=== PATIENT | female | born 1970 | race American Indian/Alaskan Native ===

== ENCOUNTER 2021-07-19 00:38 | Emergency (ER) | payer SELFPAY ==
[2021-07-19 01:22] VITALS: BP 122/73
--- NOTE | 2021-07-19 03:17 | Emergency Department Report ---
ED General Adult HPI - General Chief complaint: Chest Pain Stated complaint: chest pain Time Seen by Provider: 07/19/21 02:56 Source: EMS Mode of arrival: Stretcher Limitations: No Limitations - History of Present Illness Initial comments: Patient is 50 years old female with recent diagnosis of DVT and pulmonary embolism. Patient stated that she stayed 8 days at [facility]. Patient stated that she was discharged on Eliquis. Patient stated that she is compliant with her medication. Patient presented to the ER complaining of chest pain and bilateral lower extremity pain. She denies any fever or chills. She also reported palpitation. Severity scale (0 -10): 2 - Related Data Previous Rx's Medication Instructions Recorded Last Taken Type Naproxen [Naprosyn] 500 mg PO BID #14 tablet 07/19/21 Unknown Rx Allergies Allergy/AdvReac Type Severity Reaction Status Date / Time No Known Allergies Allergy Unverified 07/19/21 01:22 ED Review of Systems ROS: Stated complaint: chest pain Other details as noted in HPI Comment: All other systems reviewed and negative Constitutional: denies: chills, fever Respiratory: denies: cough, shortness of breath, SOB with exertion Cardiovascular: chest pain, palpitations Gastrointestinal: denies: abdominal pain, nausea, vomiting Musculoskeletal: denies: back pain Neurological: denies: headache, weakness, numbness, paresthesias, confusion ED Past Medical Hx - Past Medical History Previous Medical History?: Yes Hx Deep Vein Thrombosis: Yes Additional medical history: PE - Surgical History Past Surgical History?: No - Medications Home Medications: Home Medications Medication Instructions Recorded Confirmed Last Taken Type Naproxen [Naprosyn] 500 mg PO BID #14 tablet 07/19/21 Unknown Rx ED Physical Exam - General Limitations: No Limitations General appearance: alert, in no apparent distress - Head Head exam: Present: atraumatic, normocephalic, normal inspection - Eye Eye exam: Present: normal appearance - ENT ENT exam: Present: normal exam, normal orophraynx, mucous membranes moist - Neck Neck exam: Present: normal inspection, full ROM. Absent: tenderness, meningismus - Respiratory Respiratory exam: Present: normal lung sounds bilaterally - Cardiovascular Cardiovascular Exam: Present: regular rate, normal rhythm, normal heart sounds - GI/Abdominal GI/Abdominal exam: Present: soft, normal bowel sounds. Absent: distended, tenderness, guarding, rebound, rigid, mass, bruit, pulsatile mass, hernia - Extremities Exam Extremities exam: Present: normal inspection, full ROM, normal capillary refill. Absent: tenderness - Back Exam Back exam: Present: normal inspection, full ROM. Absent: CVA tenderness (R), CVA tenderness (L) - Neurological Exam Neurological exam: Present: alert, oriented X3, CN II-XII intact, normal gait, reflexes normal - Psychiatric Psychiatric exam: Present: normal mood - Skin Skin exam: Present: warm, intact, normal color ED Course Vital Signs 07/19/21 07/19/21 01:08 01:19 Temperature 98.0 F 98.3 F Pulse Rate 72 Respiratory 18 Rate Blood Pressure 122/73 [Right] ED Medical Decision Making - Lab Data Result diagrams: 07/19/21 03:15 07/19/21 03:15 - EKG Data -: EKG Interpreted by Me EKG shows normal: sinus rhythm Rate: normal - EKG Data Interpretation: no acute changes - Radiology Data Radiology results: report reviewed - Medical Decision Making Patient is 50 years old female with recent diagnosis of DVT and pulmonary embolism. Patient stated that she stayed 8 days at [facility]. Patient stated that she was discharged on Eliquis. Patient stated that she is compliant with her medication. Patient presented to the ER complaining of chest pain and bilateral lower extremity pain. She denies any fever or chills. She also reported palpitation. Patient remained stable in the ER with stable vital signs. Chest x-ray is negative. EKG showed no ST elevation. Bilateral lower extremity Dopplers nega tive for DVT. CTA chest is negative for PE however showed groundglass appearance that might be related to atypical pneumonia. Patient denies any cough, fever or chills. Patient advised to follow-up with her primary care physician in the next 2 to 3 days and to return to the ER if she develop any new symptoms. Critical care attestation.: If time is entered above; I have spent that time in minutes in the direct care of this critically ill patient, excluding procedure time. ED Disposition Clinical Impression: Acute chest pain, Bilateral leg pain Disposition: HOME / SELF CARE / HOMELESS Is pt being admited?: No Condition: Stable Instructions: Nonspecific Chest Pain, Adult, Chest Pain (ED) Prescriptions: Naproxen [Naprosyn] 500 mg PO BID #14 tablet Referrals: PRIMARY CARE, [Primary Care Provider] - 3-5 Days
[2021-07-19 03:40] LABS: Basophils % (Auto) 0.4 % (0.0-1.8); Eosinophils # (Auto) 0.1 K/mm3 (0.0-0.4); Hematocrit 36.7 % (30.3-42.9); Hemoglobin 11.6 gm/dl (10.1-14.3); Lymphocytes % (Auto) 27.3 % (13.4-35.0); Mean Corpuscular HGB Conc 32 % (30-34); Mean Corpuscular Volume 82 fl (79-97); Monocytes # (Auto) 0.4 K/mm3 (0.0-0.8); Monocytes % (Auto) 6.1 % (0.0-7.3); Platelet Count 325 K/mm3 (140-440); Red Blood Count 4.47 M/mm3 (3.65-5.03); Red Cell Distribution Width 14.8 % (13.2-15.2)
--- NOTE | 2021-07-19 03:45 | XRay Report ---
CHEST 2 VIEWS INDICATION / CLINICAL INFORMATION: Chest Pain. COMPARISON: Chest CT dated 01/23/12 FINDINGS: SUPPORT DEVICES: None. HEART / MEDIASTINUM: Heart is upper normal size and stable. LUNGS / PLEURA: No significant pulmonary or pleural abnormality. No pneumothorax. ADDITIONAL FINDINGS: No significant additional findings. IMPRESSION: 1. No acute findings. Signer Name: Stanford Le MD Signed: 07/19/2021 3:41 AM Workstation Name: [id number]
[2021-07-19 03:50] LABS: BUN/Creatinine Ratio 19; Blood Urea Nitrogen 15 mg/dL (7-17); Hemolysis Index 2
--- NOTE | 2021-07-19 05:31 | Vascular Lab Report ---
DUPLEX DOPPLER LOWER EXTREMITY VEINS, BILATERAL INDICATION / CLINICAL INFORMATION: Bilateral leg pain, history of DVT. TECHNIQUE: Duplex doppler imaging was performed through the veins of both lower extremities using gianni ous compression and other maneuvers. COMPARISON: None available. FINDINGS: RIGHT COMMON FEMORAL VEIN: Negative. RIGHT FEMORAL VEIN: Negative. RIGHT POPLITEAL VEIN: Negative. RIGHT CALF VEINS: Negative. LEFT COMMON FEMORAL VEIN: Negative. LEFT FEMORAL VEIN: Negative. LEFT POPLITEAL VEIN: Negative. LEFT CALF VEINS: Negative. ADDITIONAL FINDINGS: None. IMPRESSION: 1. No sonographic evidence for DVT in either lower extremity. Signer Name: Stanford Le MD Signed: 07/19/2021 5:27 AM Workstation Name: [id number]
--- NOTE | 2021-07-19 06:09 | Cat Scan Report ---
CTA CHEST WITH CONTRAST INDICATION / CLINICAL INFORMATION: CHEST PAIN WITH H/O PE. TECHNIQUE: Axial CT images were obtained through the chest after injection of 100 mL Omnipaque 350 IV contrast. 3 plane MIP and/or 3D reconstructions were produced. All CT scans at this location are per formed using CT dose reduction for ALARA by means of automated exposure control. COMPARISON: CT dated 01/23/12 FINDINGS: PULMONARY ARTERIES: No pulmonary emboli. THORACIC AORTA: No significant abnormality. HEART: No significant abnormality. CORONARY ARTERY CALCIFICATION: None. MEDIASTINUM / ROBIN: No significant abnormality. PLEURA: No pleural effusion. No pneumothorax. LUNGS: Patchy bilateral groundglass densities. ADDITIONAL FINDINGS: None. UPPER ABDOMEN: No acute findings. SKELETAL STRUCTURES: No significant osseous abnormality. IMPRESSION: 1. No CT evidence for pulmonary embolism. 2. Patchy bilateral groundglass densities are nonspecific but can be seen in lower airways disease or early atypical/viral pneumonia. Signer Name: Stanford Le MD Signed: 07/19/2021 6:04 AM Workstation Name: [id number]
== END 2021-07-19 06:53 | disposition home or self-care (01) ==
LOC: ED 00:38
DX: R07.9 Chest pain, unspecified (principal); M79.661 Pain in right lower leg; M79.662 Pain in left lower leg
CPT/HCPCS: 36415; 71046; 71275; 80048; 83690; 84484; 85025; 93005; 93970; 99284; Q9967